=== PATIENT | female | born 1965 | race Caucasian/White ===

== ENCOUNTER 2016-11-15 12:30 | Outpatient (CLI) ==
[2015-05-31 08:06] VITALS: BMI 28.3
[2016-11-15 13:12] LABS: SERUM PREGNANCY INTERNAL QC INTERNAL QC VALID
== END 2016-11-15 12:31 | disposition home or self-care (01) ==
LOC: LAB 12:30
PROVIDERS: ATTEND Family Medicine
DX: N91.2 Amenorrhea, unspecified (principal)
CPT/HCPCS: 36415; 84703

== ENCOUNTER 2016-12-14 08:26 | Outpatient (CLI) ==
[2015-05-31 08:06] VITALS: BMI 28.3
--- NOTE | 2016-12-14 09:48 | DI ---
EXAM: Radiographs, left first toe HISTORY: Initial presentation for the first toe injury. COMPARISON: None available. TECHNIQUE: Three views. FINDINGS: Bone mineralization is decreased. There is no fracture or dislocation. The joint spaces are maintained. No focal soft tissue abnormality is seen. IMPRESSION: No fracture or dislocation.
== END 2016-12-14 08:27 | disposition home or self-care (01) ==
LOC: RAD 08:26
PROVIDERS: ATTEND Family Medicine
DX: S99.922A Unspecified injury of left foot, initial encounter (principal); L03.032 Cellulitis of left toe

== ENCOUNTER 2017-02-16 13:40 | Outpatient (CLI) ==
[2015-05-31 08:06] VITALS: BMI 28.3
--- NOTE | 2017-02-16 23:13 | MRI ---
EXAM: MRI left knee without contrast. HISTORY: Left knee pain. Decreased range of motion. No known injury. Trouble walking. Swelling. No left knee surgery.. TECHNIQUE: Using a local extremity coil on a high field strength magnet multiplanar multisequence m agnet resonance imaging was performed of the left knee without intravenous or intra-articular gadoli nium contrast. COMPARISON: Four view plain film examination left knee 12/02/2015. FINDINGS: Within the medial compartment medial meniscus is intact without discrete surfacing menisc al tear. The medial compartment cartilage congruent without focal underlying subchondral edema. Within the lateral compartment lateral meniscus is intact without discrete surfacing meniscal tear. The lateral compartment cartilage congruent without underlying subchondral edema. Within the patellofemoral compartment the patella seated with intact patellar attachment of the medi al and lateral patellar retinaculum. Both the patellar and trochlear groove cartilage congruent wit hout underlying subchondral edema. Small left effusion. No osteochondral loose bodies. Synovial/ganglion cyst formation posterior cru ciate ligament recess. Intact anterior and posterior cruciate ligament fibers. The extensor mechan ism is intact. Distal quadriceps tendinosis. Proximal patellar tendinosis. Anterior superficial s oft tissue edema/swelling. Additionally there is increased signal and thickening within fat interpo sed between the quadriceps tendon and the suprapatellar bursa. The medial collateral ligament intac t as is the lateral collateral ligament complex and posterolateral corner. Overall bone marrow sign al intensity shows no acute fracture, stress fracture or bone erosions.. Trace posterior joint exte nsion/popliteal cyst.. IMPRESSION: No discrete surfacing meniscal tear. Small left effusion. Synovial/ganglion cyst formation posterior cruciate ligament recess. Distal quadriceps tendinosis. Proximal patellar tendinosis. Increased signal and thickening within fat interposed between the quadriceps tendon and the suprapatellar bursa. This can be seen with qu adriceps fat pad impingement syndrome. Correlate clinically. Intact cruciate and collateral ligaments.
== END 2017-02-16 13:41 | disposition home or self-care (01) ==
LOC: RAD 13:40
PROVIDERS: ATTEND Family Medicine
DX: M25.562 Pain in left knee (principal); M25.662 Stiffness of left knee, not elsewhere classified

== ENCOUNTER 2017-03-02 08:43 | Outpatient (CLI) ==
[2015-05-31 08:06] VITALS: BMI 28.3
[2017-03-02 09:17] LABS: BASOPHILS % (AUTO) 0.8 % (0.0-3.0); EOSINOPHILS # (AUTO) 0.4 K/ul (0.0-0.7); EOSINOPHILS % (AUTO) 7.1 % (0.0-7.0); HEMATOCRIT 36.6 % (37.0-47.0); HEMOGLOBIN 12.5 g/dl (12.0-16.0); IMMATURE GRANULOCYTE % (AUTO) 0.4 % (0.0-5.0); LYMPHOCYTES # (AUTO) 1.8 K/uL (0.60-3.4); LYMPHOCYTES % (AUTO) 36.4 (10.0-50.0); MEAN CORPUSCULAR HEMOGLOBIN 29.7 pg (27.0-31.0); MEAN CORPUSCULAR HGB CONC 34.2 (31.8-35.4); MEAN CORPUSCULAR VOLUME 86.9 fl (81.0-99.0); MONOCYTES # (AUTO) 0.4 K/uL (0.4-2.0); MONOCYTES % (AUTO) 7.1 (0-10); NEUTROPHILS # (AUTO) 2.4 K/ul (2.0-6.9); NEUTROPHILS % (AUTO) 48.2; PLATELET COUNT 278 10^3/uL (140-440); RED BLOOD COUNT 4.21 10^6/ul (4.20-5.40); WHITE BLOOD COUNT 5.05 K/ul (4.6-10.2)
--- NOTE | 2017-03-02 09:28 | CT ---
EXAM: CT of the sinuses/maxillofacial region without contrast History: Facial tenderness and dizziness. Technique: Multiplanar CT images through the sinuses/maxillofacial region were obtained without the administration of IV contrast Findings: Orbits are intact. The visualized intracranial contents demonstrate no grossly acute fin dings. Surrounding soft tissues demonstrate no acute findings. No acute fracture or dislocation. Minimal mucosal thickening of the left maxillary sinus and left e thmoid air cells. Minimal mucosal thickening of the sphenoid sinuses. Hypoplastic frontal sinuses. The visualized right mastoid air cells are clear. Partially visualized left mastoid effusion. Weston al septum is bowed mildly to the left. Bilateral ostiomeatal units are not occluded. Impression: 1. Minimal mucosal thickening of the paranasal sinuses as detailed above. 2. Partially visualized left mastoid effusion.
[2017-03-02 09:32] LABS: BILIRUBIN,URINE Negative (NEGATIVE); KETONES,URINE Negative (NEGATIVE); LEUKOCYTE ESTERASE ,URINE Negative (NEGATIVE); NITRITE,URINE Negative (NEGATIVE); PROTEIN,URINE Trace (NEGATIVE); URINE, BLOOD Negative (NEGATIVE)
[2017-03-02 09:35] LABS: ADD URINE MICROSCOPIC YES
[2017-03-02 09:47] LABS: BACTERIA,URINE TRACE (NOT PRESENT)
[2017-03-02 10:02] LABS: ALBUMIN 3.4 g/dL (3.4-5.0); ALBUMIN/GLOBULIN RATIO 0.92; ANION GAP 12.7; BILIRUBIN,TOTAL 0.7 mg/dL (0.00-1.20); BUN/CREATININE RATIO 20.98; CALCIUM 8.9 mg/dL (8.2-10.2); CHOL/HDL RATIO 2.5 (4.5-5.5); CREATININE 0.81 mg/dL (0.60-1.30); POTASSIUM 3.7 mmol/L (3.5-5.10); TOTAL PROTEIN 7.1 g/dL (6.4-8.2)
== END 2017-03-02 08:44 | disposition home or self-care (01) ==
LOC: RAD 08:43
PROVIDERS: ATTEND Family Medicine
DX: R51 Headache (principal); R42 Dizziness and giddiness; E78.00 Pure hypercholesterolemia, unspecified; D50.9 Iron deficiency anemia, unspecified; K21.9 Gastro-esophageal reflux disease without esophagitis; F31.9 Bipolar disorder, unspecified; Z79.899 Other long term (current) drug therapy
CPT/HCPCS: 36415; 80053; 80061; 81001; 84439; 84443; 85025

== ENCOUNTER 2017-04-04 14:00 | Outpatient (RCR) ==
[2015-05-31 08:06] VITALS: BMI 28.3
--- NOTE | 2017-03-14 11:55 | RS.OPPTEV2 ---
Date of Note: 03/13/17 Visit #: 1 Date of Evaluation: 03/13/17 Payer Source: Medicaid Surgery Performed?: No Treatment Diagnosis: Left knee pain History of Condition/Mechanism of Injury:: Patient reports progressive left knee pain over the last 1-2 months. Reports no specific injury. Prior Level of Function.....Patient was independent with: ADL's, Self Care, Work /Vocation, Caregiving, Ambulation/Mobility, Community Integration/Access Functional Limitations: Sleep, ADL's, Lifting, Carrying, Sitting, Standing, Bending, Squatting, Ambulation, Community Access/Integration Current Subjective/complaints:: Patient reports constant throbbing in the left knee. States today it seems like she has a little more movement. She reports popping in the knee when she stretches out at night. She has had no injection to the knee. She works at [employer], walking and standing on concrete. States pain is worse after working 8-10 hours. She has not tried heat or ice, because she did not know which one to use. Reports pain on the lateral side of the patella and above and below the patella. Treatment Side (optional): Left Medical History Medical History: Arthritis, Cancer (left Breast) Smoking Status: Never smoker Diagnostic Testing/Imaging:: MRI of left knee on 02/16/17. Impression: No discrete surfacing meniscal tear. Small left effusion. Synovial/ganglion cyst formation posterior cruciate ligament recess. Distal quadriceps tendinosis. Proximal patellar tendinosis. Increased signal and thickening within fat interposed between the quadriceps tendon and the suprapatellar bursa. Inact cruciate and collateral ligaments. Patient's Goals: Her goal is to get relief of left knee pain. Pain Assessment - Pain Description Pain Location: left knee Current Pain Intensity: 8/10 Worst Pain Intensity: 10/10 Functional Outcome Measure LE Functional Scale: 36 (36/80=55% impairment) - G Codes & Severity Modifier G Codes & Modifier: NA Source of G Code score: NA Observation - Observation Inspection: Left knee presents with no bruising or redness. Presents with small pocket of swelling just lateral to the patella. Comments: Standing postural alignment with shoes off, patient demonstrates bilateral pes planus, without noted genu valgus. Gait - Gait Pattern Gait Comments: Patient ambulates without an assistive device with decreased stance phase on the left LE. Also demonstrates decreased left knee flexion during swing phase and then demonstrates decreased left heel strike. - Left Knee ROM Left Knee Extension: -2 degrees from full extension Left Knee Flexion: 133 (degrees AROM) Knee ROM Limitations: Soft Tissue Tightness - Right Knee ROM Right Knee Extension: full knee extension Right Knee Flexion: 135 (degrees AROM) - Left Knee Strength Left Knee Extension: 4+ Good + Left Knee Flexion: 4 Good - Right Knee Strength Right Knee Extension: 5 Normal Right Knee Flexion: 5 Normal - Special Tests Patella Apprehension Test: Negative Left Patellar Compression Test: Positive Left Palpation Comments:: Patient reports tenderness with mobility of the patella and with slight compression. Reports tenderness just lateral to the patella and over the quad and patellar tendons. Sensation - Sensation Right Lower Extremity: Intact/Normal Left Lower Extremity: Intact/Normal Additional Comments: Additional Comments: SLR left 45 degrees, right 50-55 degrees. - Treatment Modality: Ultrasound Parameters/Method Applied: 5 mins continuous @ 1.5 w/cm2, then 5 mins @ 20% pulsed 1.0 w/cm2 throughout the left patella and quad tendon and along the lateral side of the patella. Patient Position: Supine Interventions - Exercise/Activities/Manual Therapy Exercises/Activities: Patient instructed in left quad stretching in supine and SLR for HEP. Advised to ice the left knee, especially after work. Also advised to get a shoe insert for increased arch support. Manual Therapy: NA HOME EXERCISE PROGRAM: left quad stretching in supine and SLR for HEP. - Charges Total Direct Minutes: 50 mins Total Treatment Time: 50 mins Procedures billed for this date of service:: MOOSE Low X 3, US Assessment Assessment: Patient presents to therapy with a diagnosis of left knee pain, quadricep tedinopathy. She reports constant throbbing in the knee and stiffness. She reports increased pain with working 8-10 hours. In the department, she exhibits gait deviations due to guarding the left knee, left knee weakness, and tenderness at the patella and quad tendons. She will benefit from modalities to reduce inflammation and exercises of stretching and strengthening to the left LE. Patient Education: Education of diagnosis, Body/Joint mechanics, Home Exercise Program, Home Safety, Activity Modification, Education of Plan of Care Rehab Potential: Good Short Term Goals Goal #1: Pt independent in basic HEP. Goal to be met by: 03/28/17 Goal #2: Pt to ambulate with minimal gait deviation on the left LE. Goal to be met by: 03/28/17 Goal #3: Left HS strength 4+/5. Goal to be met by: 03/28/17 Sql Engineer Goals Goal #1: Pt knows HEP and to continue ex's to maintain functional level at D/C. Goal to be met by: 04/18/17 Goal #2: Score on LE functional scale improved to 60/80. Goal to be met by: 04/18/17 Goal #3: Patient able to perform all ADL's and ambulation with no left knee pain. Goal to be met by: 04/18/17 Goal #4: Pt will be able to work 8-10 hour shift with minimal left knee pain. Goal to be met by: 04/18/17 Plan - Treatment to be Provided Procedures: Therapeutic Exercises, Therapeutic Activity, Patient Education Modalities: Electrical Stimulation, Ultrasound/Phonophoresis, Cryotherapy, Hot Packs - Treatment Plan Frequency: 3 X week Duration: 3 weeks ORDER # VISITS AND/OR THROUGH DATE: 04/18/17 - Treatment Code (1) Knee pain Qualifiers: Laterality: left Chronicity: acute Qualified Description: Acute pain of left knee Qualifier Code(s): (M25.562) Pain in left knee (2) Quadriceps tendinitis Comments: M76.757
--- NOTE | 2017-03-16 16:02 | RS.OPPTDN ---
Subjective Date of Note: 03/16/17 Visit #: 2 Date of Evaluation: 03/13/17 Payer Source: Medicaid Treatment Diagnosis: Left knee pain Current Subjective/complaints:: Patient reports the knee pain is less today , but she is off from work today.She does report using ice at home ,after her work shifts. Pain Assessment - Pain Description Pain Location: left knee Pain Description: Dull, Aching Current Pain Intensity: 4/10 Other Comments regarding Pain:: Pain can be sharp at times. - Treatment Modality: Ultrasound Parameters/Method Applied: 10 mins. @ 50% pulsed mode to L knee,@ 1.5 w/cm2. Patient Position: Supine - Heat/Cryotherapy Treatment: Cryotherapy (20 mis. after modalities and exercises) Interventions - Exercise/Activities/Manual Therapy Exercises/Activities: 20 mins. instruction and return demo of each exercise, including quad sets,SLR's,SLR(VMO),R sidelying for L hip flexor stretches. Total minutes of Exercise: 20 Manual Therapy: NA Total minutes of Manual Therapy: 0 HOME EXERCISE PROGRAM: left quad stretching in supine and SLR for HEP. - Charges Total Direct Minutes: 30 Total Treatment Time: 50 Procedures billed for this date of service:: US,ex ,cp Assessment: Patient is tender to palpate the lateral aspect of the L knee today.She reports pain with passive glide of the L patella,also.She has good return demo of quad sets,and SLR's.She fatigues easily with the VMO leg lifts , but reports this does not increased the actual knee pain.Instructed to use ice as often as necessary . Patient Education: Education of diagnosis, Body/Joint mechanics, Home Exercise Program, Home Safety, Activity Modification, Education of Plan of Care Short Term Goals Goal #1: Pt independent in basic HEP. Goal to be met by: 03/28/17 Progress towards Goal:: Progressing Goal #2: Pt to ambulate with minimal gait deviation on the left LE. Goal to be met by: 03/28/17 Goal #3: Left HS strength 4+/5. Goal to be met by: 03/28/17 Experimental Box Tester Goals Goal #1: Pt knows HEP and to continue ex's to maintain functional level at D/C. Goal to be met by: 04/18/17 Progress towards goal: Progressing Goal #2: Score on LE functional scale improved to 60/80. Goal to be met by: 04/18/17 Goal #3: Patient able to perform all ADL's and ambulation with no left knee pain. Goal to be met by: 04/18/17 Goal #4: Pt will be able to work 8-10 hour shift with minimal left knee pain. Goal to be met by: 04/18/17 Plan PLAN OF CARE EXPIRES ON:: 04/18/17 ORDER # VISITS AND/OR THROUGH DATE: 04/18/17 PLAN: Continue Plan of Care
--- NOTE | 2017-03-21 15:15 | RS.OPPTDN ---
Subjective Date of Note: 03/21/17 Visit #: 3 Date of Evaluation: 03/13/17 Payer Source: Medicaid Treatment Diagnosis: Left knee pain Current Subjective/complaints:: Patient reports extreme knee pain currently,has been on her feet since 4 AM,works at [employer]. Pain Assessment - Pain Description Pain Location: left knee Pain Description: Dull, Aching Current Pain Intensity: 10/10 upon arrival,4/10 after treatment - Treatment Modality: Ultrasound Parameters/Method Applied: 10 mins. to L knee @ 1.5 w/cm2,50% pulsed mode. Patient Position: Supine - Heat/Cryotherapy Treatment: Cryotherapy (20 mins. prior to US and exercises) Interventions - Exercise/Activities/Manual Therapy Exercises/Activities: 20 mins. total exercise,including quad sets,SAQ'sSLR's,3/ 10 each.Gentle patellar glides. Total minutes of Exercise: 20 Manual Therapy: NA Total minutes of Manual Therapy: 0 HOME EXERCISE PROGRAM: left quad stretching in supine and SLR for HEP. - Charges Total Direct Minutes: 30 Total Treatment Time: 50 Procedures billed for this date of service:: cp,US,ex 1 Assessment: Patient has improved return demo of SLr's today.She reports significant relief after treatment today.She has less antalgic gait when exiting clinic today.She is attentive and compliant to HEP. Patient Education: Education of diagnosis, Body/Joint mechanics, Home Exercise Program, Home Safety, Activity Modification, Education of Plan of Care Patient demonstrates compliance with HEP?: Yes Short Term Goals Goal #1: Pt independent in basic HEP. Goal to be met by: 03/28/17 Progress towards Goal:: Progressing Goal #2: Pt to ambulate with minimal gait deviation on the left LE. Goal to be met by: 03/28/17 Progress towards Goal:: Progressing Goal #3: Left HS strength 4+/5. Goal to be met by: 03/28/17 Halfway Goals Goal #1: Pt knows HEP and to continue ex's to maintain functional level at D/C. Goal to be met by: 04/18/17 Progress towards goal: Progressing Goal #2: Score on LE functional scale improved to 60/80. Goal to be met by: 04/18/17 Goal #3: Patient able to perform all ADL's and ambulation with no left knee pain. Goal to be met by: 04/18/17 Goal #4: Pt will be able to work 8-10 hour shift with minimal left knee pain. Goal to be met by: 04/18/17 Plan PLAN OF CARE EXPIRES ON:: 04/18/17 ORDER # VISITS AND/OR THROUGH DATE: 04/18/17 PLAN: Continue Plan of Care
--- NOTE | 2017-03-23 15:00 | RS.OPPTDN ---
Subjective Date of Note: 03/23/17 Visit #: 4 Date of Evaluation: 03/13/17 Payer Source: Medicaid Treatment Diagnosis: Left knee pain Current Subjective/complaints:: Patient very apologetic,25 mins. late today,but does understand she will receive abbreviated treatment. Pain Assessment - Pain Description Pain Location: left knee Pain Description: Sharp, Dull, Aching Current Pain Intensity: 10/10 upon arrival - Treatment Modality: Ultrasound Parameters/Method Applied: 10 mins.,continuous mode @ 1.5 w/cm2, to L knee. Patient Position: Supine - Heat/Cryotherapy Treatment: Cryotherapy (15 mins. after US) Interventions - Exercise/Activities/Manual Therapy Exercises/Activities: None today (25 mins. late ). Total minutes of Exercise: 0 Manual Therapy: NA Total minutes of Manual Therapy: 0 HOME EXERCISE PROGRAM: left quad stretching in supine and SLR for HEP. - Charges Total Direct Minutes: 10 Total Treatment Time: 25 Procedures billed for this date of service:: US,cp Assessment: No objective assessment today due to abbreviated treatment.She is motivated to improve and understands to continue HEP in pain free ROM. Patient Education: Education of diagnosis, Body/Joint mechanics, Home Exercise Program, Home Safety, Activity Modification, Education of Plan of Care Patient demonstrates compliance with HEP?: Yes Short Term Goals Goal #1: Pt independent in basic HEP. Goal to be met by: 03/28/17 Progress towards Goal:: Progressing Goal #2: Pt to ambulate with minimal gait deviation on the left LE. Goal to be met by: 03/28/17 Progress towards Goal:: Progressing Goal #3: Left HS strength 4+/5. Goal to be met by: 03/28/17 Jv Baseball Coach Goals Goal #1: Pt knows HEP and to continue ex's to maintain functional level at D/C. Goal to be met by: 04/18/17 Progress towards goal: Progressing Goal #2: Score on LE functional scale improved to 60/80. Goal to be met by: 04/18/17 Goal #3: Patient able to perform all ADL's and ambulation with no left knee pain. Goal to be met by: 04/18/17 Goal #4: Pt will be able to work 8-10 hour shift with minimal left knee pain. Goal to be met by: 04/18/17 Plan PLAN OF CARE EXPIRES ON:: 04/18/17 ORDER # VISITS AND/OR THROUGH DATE: 04/18/17 PLAN: Continue Plan of Care
--- NOTE | 2017-03-28 15:03 | RS.OPPTDN ---
Subjective Date of Note: 03/28/17 Visit #: 5 Date of Evaluation: 03/13/17 Payer Source: Medicaid Treatment Diagnosis: Left knee pain Current Subjective/complaints:: Enters clinic with elevated pain today,very antalgic gait,has been working since 4 AM. on her feet all day. Pain Assessment - Pain Description Pain Location: left knee Pain Description: Sharp, Dull, Aching Current Pain Intensity: 10/10 upon arrival - Treatment Modality: Ultrasound Parameters/Method Applied: 15 mins. @ 1.5 w/cm2,continuous mode to the perimeter of L patella. Patient Position: Supine - Heat/Cryotherapy Treatment: Cryotherapy (20 mins. to L knee) Interventions - Exercise/Activities/Manual Therapy Exercises/Activities: N/A Total minutes of Exercise: 0 Manual Therapy: NA Total minutes of Manual Therapy: 0 HOME EXERCISE PROGRAM: left quad stretching in supine and SLR for HEP. - Charges Total Direct Minutes: 15 Total Treatment Time: 35 Procedures billed for this date of service:: cp,US Assessment: No exerciss today due to severe pain upon attempting SAQ's.She exits clinic ,still has antalgic gait.She is compliant to doing her HEP when she can tolerate.Her most severe is in terminal knee extension. Patient Education: Education of diagnosis, Body/Joint mechanics, Home Exercise Program, Home Safety, Activity Modification, Education of Plan of Care Patient demonstrates compliance with HEP?: Yes Short Term Goals Goal #1: Pt independent in basic HEP. Goal to be met by: 03/28/17 Progress towards Goal:: Progressing Goal #2: Pt to ambulate with minimal gait deviation on the left LE. Goal to be met by: 03/28/17 (very antalgic today) Progress towards Goal:: Regressing Goal #3: Left HS strength 4+/5. Goal to be met by: 03/28/17 (N/A) Spearer Goals Goal #1: Pt knows HEP and to continue ex's to maintain functional level at D/C. Goal to be met by: 04/18/17 Progress towards goal: Progressing Goal #2: Score on LE functional scale improved to 60/80. Goal to be met by: 04/18/17 Goal #3: Patient able to perform all ADL's and ambulation with no left knee pain. Goal to be met by: 04/18/17 Progress towards goal: No Change Goal #4: Pt will be able to work 8-10 hour shift with minimal left knee pain. Goal to be met by: 04/18/17 Progress towards goal: No Change Plan PLAN OF CARE EXPIRES ON:: 04/18/17 ORDER # VISITS AND/OR THROUGH DATE: 04/18/17 PLAN: Continue Plan of Care
--- NOTE | 2017-03-30 14:53 | RS.OPPTDN ---
Subjective Date of Note: 03/30/17 Visit #: 6 Date of Evaluation: 03/13/17 Payer Source: Medicaid Treatment Diagnosis: Left knee pain Current Subjective/complaints:: Patient reports pain has decreased and she is walking much better today. Pain Assessment - Pain Description Pain Location: left knee Pain Description: Sharp, Dull, Aching Current Pain Intensity: 4/10 on average today - Treatment Modality: Ultrasound Parameters/Method Applied: [id number] at 1.5w/cm2 around the perimeter of the left patella prior to EX. Patient Position: Supine - Heat/Cryotherapy Treatment: Cryotherapy ([id number] to the left knee following US and EX. Patient in supine. ) Interventions - Exercise/Activities/Manual Therapy Exercises/Activities: [id number] Quad sets and ankle pumps. Hamstring stretching and passive flexion extension. SLR 2s/10reps. Patella mobs. Total minutes of Exercise: 15mins Manual Therapy: NA HOME EXERCISE PROGRAM: left quad stretching in supine and SLR for HEP. - Charges Total Direct Minutes: 29mins Total Treatment Time: 44mins Procedures billed for this date of service:: US, EX, CP Assessment: Patient responded well to last treatment session of modalities and cold pack. Significant reduction in pain rating. Patient Education: Home Exercise Program Patient demonstrates compliance with HEP?: Yes Short Term Goals Goal #1: Pt independent in basic HEP. Goal to be met by: 03/28/17 Progress towards Goal:: Progressing Goal #2: Pt to ambulate with minimal gait deviation on the left LE. Goal to be met by: 03/28/17 (very antalgic today) Progress towards Goal:: Regressing Goal #3: Left HS strength 4+/5. Goal to be met by: 03/28/17 (N/A) Chcf Goals Goal #1: Pt knows HEP and to continue ex's to maintain functional level at D/C. Goal to be met by: 04/18/17 Progress towards goal: Progressing Goal #2: Score on LE functional scale improved to 60/80. Goal to be met by: 04/18/17 Goal #3: Patient able to perform all ADL's and ambulation with no left knee pain. Goal to be met by: 04/18/17 Progress towards goal: No Change Goal #4: Pt will be able to work 8-10 hour shift with minimal left knee pain. Goal to be met by: 04/18/17 Progress towards goal: No Change Plan PLAN OF CARE EXPIRES ON:: 04/18/17 ORDER # VISITS AND/OR THROUGH DATE: 04/18/17 PLAN: Continue Plan of Care
--- NOTE | 2017-04-04 15:02 | RS.OPPTDN ---
Subjective Date of Note: 04/04/17 Visit #: 7 Date of Evaluation: 03/13/17 Payer Source: Medicaid Treatment Diagnosis: Left knee pain Current Subjective/complaints:: Reports the L knee is much better today,but also has been off work the past three days. Pain Assessment - Pain Description Pain Location: left knee Pain Description: Dull Current Pain Intensity: minimal Interventions - Exercise/Activities/Manual Therapy Exercises/Activities: [id number] Quad sets ,SLR's ,heelslides,HEP review. Total minutes of Exercise: 15 Manual Therapy: NA Total minutes of Manual Therapy: 0 HOME EXERCISE PROGRAM: left quad stretching in supine and SLR for HEP. - Charges Total Direct Minutes: 25 Total Treatment Time: 45 Procedures billed for this date of service:: cp,US,ex 1 Assessment: Patient has much less pain today,minimal antalgic gait present .She has less warmth ,less edema in the L knee today.She is compliant to HEP. Patient Education: Education of diagnosis, Body/Joint mechanics, Home Exercise Program, Home Safety, Activity Modification, Education of Plan of Care Patient demonstrates compliance with HEP?: Yes Short Term Goals Goal #1: Pt independent in basic HEP. Goal to be met by: 03/28/17 Progress towards Goal:: Partially Met Goal #2: Pt to ambulate with minimal gait deviation on the left LE. Goal to be met by: 03/28/17 Progress towards Goal:: Partially Met Goal #3: Left HS strength 4+/5. Goal to be met by: 03/28/17 Strategies Analyst Goals Goal #1: Pt knows HEP and to continue ex's to maintain functional level at D/C. Goal to be met by: 04/18/17 Progress towards goal: Partially Met Goal #2: Score on LE functional scale improved to 60/80. Goal to be met by: 04/18/17 Goal #3: Patient able to perform all ADL's and ambulation with no left knee pain. Goal to be met by: 04/18/17 Progress towards goal: Progressing Goal #4: Pt will be able to work 8-10 hour shift with minimal left knee pain. Goal to be met by: 04/18/17 (N/A today,off the past 3 days) Plan PLAN OF CARE EXPIRES ON:: 04/18/17 ORDER # VISITS AND/OR THROUGH DATE: 04/18/17 PLAN: Continue Plan of Care
== END 2017-04-05 ==
PROVIDERS: ATTEND Family Medicine
DX: M25.562 Pain in left knee (principal); M76.899 Other specified enthesopathies of unspecified lower limb, excluding foot

== ENCOUNTER 2017-04-06 15:01 | Outpatient (RCR) ==
[2015-05-31 08:06] VITALS: BMI 28.3
--- NOTE | 2017-04-06 15:06 | RS.OPPTDC ---
Date of Discharge: 04/06/17 Date of Evaluation: 03/13/17 Number of Visits: 8 Treatment Diagnosis: Left knee pain Current Level of Function: Independent in community. Current Complaints/Gains: Pleased with her progress,reports minimal knee pain today,agrees with D/C plan. Pain Assessment - Pain Description Pain Location: left knee Pain Description: Dull Current Pain Intensity: minimal Functional Outcome Measure LE Functional Scale: 49 - G Codes & Severity Modifier G Codes & Modifier: NA Source of G Code score: NA Observation - Observation Posture: Normal Gait - Gait Pattern General Gait Pattern Observation: No Deviations/Normal General Range of Motion: WNL Muscle Strength: 5-/5 - Heat/Cryotherapy Treatment: Cryotherapy (20 mins. prior to exercises) Interventions - Exercise/Activities/Manual Therapy Exercises/Activities: 25 mins. Quad sets ,SLR's ,heelslides,SAQ,LAQ,side-lying hip abduction.Copies given to patient . Total minutes of Exercise: 25 Manual Therapy: NA Total minutes of Manual Therapy: 0 HOME EXERCISE PROGRAM: left quad stretching in supine and SLR for HEP. - Charges Total Direct Minutes: 25 Total Treatment Time: 45 Procedures billed for this date of service:: cp,ex 2 Assessment Assessment: Patient no longer requires skilled PT as she has good return demo of exercises.She understands the HEP well,has minimal knee pain ,tolerates ADL' s better. Patient Education: Education of diagnosis, Body/Joint mechanics, Home Exercise Program, Home Safety, Activity Modification, Education of Plan of Care Rehab Potential: Good Short Term Goals Goal #1: Pt independent in basic HEP. Goal to be met by: 03/28/17 Progress towards Goal:: Met Goal #2: Pt to ambulate with minimal gait deviation on the left LE. Goal to be met by: 03/28/17 Progress towards Goal:: Met Goal #3: Left HS strength 4+/5. Goal to be met by: 03/28/17 Progress towards Goal:: Met Sales Operations Goals Goal #1: Pt knows HEP and to continue ex's to maintain functional level at D/C. Goal to be met by: 04/18/17 Progress towards goal: Met Goal #2: Score on LE functional scale improved to 60/80. Goal to be met by: 04/18/17 Progress towards goal: Progressing Goal #3: Patient able to perform all ADL's and ambulation with no left knee pain. Goal to be met by: 04/18/17 Progress towards goal: Partially Met Goal #4: Pt will be able to work 8-10 hour shift with minimal left knee pain. Goal to be met by: 04/18/17 Progress towards goal: Progressing Plan Reason for Discharge:: No Further Skilled Therapy Indicated
== END 2017-05-05 ==
PROVIDERS: ATTEND Family Medicine
DX: M25.562 Pain in left knee (principal); M76.892 Other specified enthesopathies of left lower limb, excluding foot

== ENCOUNTER 2017-05-29 08:58 | Outpatient (CLI) ==
[2015-05-31 08:06] VITALS: BMI 28.3
[2017-05-29 09:11] LABS: BASOPHILS % (AUTO) 0.7 % (0.0-3.0); EOSINOPHILS # (AUTO) 0.2 K/ul (0.0-0.7); EOSINOPHILS % (AUTO) 4.2 % (0.0-7.0); HEMATOCRIT 36.2 % (37.0-47.0); HEMOGLOBIN 12.5 g/dl (12.0-16.0); IMMATURE GRANULOCYTE % (AUTO) 0.2 % (0.0-5.0); LYMPHOCYTES # (AUTO) 2.3 K/uL (0.60-3.4); LYMPHOCYTES % (AUTO) 41.9 (10.0-50.0); MEAN CORPUSCULAR HEMOGLOBIN 29.7 pg (27.0-31.0); MEAN CORPUSCULAR HGB CONC 34.5 (31.8-35.4); MONOCYTES # (AUTO) 0.4 K/uL (0.4-2.0); MONOCYTES % (AUTO) 6.9 (0-10); NEUTROPHILS # (AUTO) 2.6 K/ul (2.0-6.9); NEUTROPHILS % (AUTO) 46.1; PLATELET COUNT 263 10^3/uL (140-440); RED BLOOD COUNT 4.21 10^6/ul (4.20-5.40); WHITE BLOOD COUNT 5.54 K/ul (4.6-10.2)
[2017-05-29 09:29] LABS: ALBUMIN 3.6 g/dL (3.4-5.0); ALBUMIN/GLOBULIN RATIO 0.97; ANION GAP 15.1; BILIRUBIN,TOTAL 0.56 mg/dL (0.00-1.20); CALCIUM 9.2 mg/dL (8.2-10.2); CHOL/HDL RATIO 2.7 (4.5-5.5); CREATININE 0.85 mg/dL (0.60-1.30); POTASSIUM 4.1 mmol/L (3.5-5.10); TOTAL PROTEIN 7.3 g/dL (6.4-8.2)
== END 2017-05-29 08:59 | disposition home or self-care (01) ==
LOC: LAB 08:58
PROVIDERS: ATTEND Family Medicine
DX: E78.00 Pure hypercholesterolemia, unspecified (principal); D50.9 Iron deficiency anemia, unspecified; F31.9 Bipolar disorder, unspecified; R74.8 Abnormal levels of other serum enzymes; Z79.899 Other long term (current) drug therapy
CPT/HCPCS: 36415; 80053; 80061; 84075; 84080; 85025

== ENCOUNTER 2017-07-14 06:44 | Outpatient (CLI) ==
[2015-05-31 08:06] VITALS: BMI 28.3
[2017-07-14 07:25] LABS: ALBUMIN 3.5 g/dL (3.4-5.0); ALBUMIN/GLOBULIN RATIO 0.97; ANION GAP 11.8; BILIRUBIN,TOTAL 0.6 mg/dL (0.00-1.20); BUN/CREATININE RATIO 20.51; CALCIUM 9.6 mg/dL (8.2-10.2); CHOL/HDL RATIO 3.3 (4.5-5.5); CREATININE 0.78 mg/dL (0.60-1.30); POTASSIUM 3.8 mmol/L (3.5-5.10); TOTAL PROTEIN 7.1 g/dL (6.4-8.2)
[2017-07-14 07:32] LABS: BASOPHILS # (AUTO) 0.1 K/uL (0-0.2); EOSINOPHILS # (AUTO) 0.3 K/ul (0.0-0.7); HEMATOCRIT 36.8 % (37.0-47.0); HEMOGLOBIN 12.4 g/dl (12.0-16.0); IMMATURE GRANULOCYTE % (AUTO) 0.2 % (0.0-5.0); LYMPHOCYTES # (AUTO) 2.1 K/uL (0.60-3.4); MEAN CORPUSCULAR HEMOGLOBIN 29.3 pg (27.0-31.0); MEAN CORPUSCULAR HGB CONC 33.7 (31.8-35.4); MONOCYTES # (AUTO) 0.4 K/uL (0.4-2.0); MONOCYTES % (AUTO) 7.1 (0-10); NEUTROPHILS # (AUTO) 2.3 K/ul (2.0-6.9); NEUTROPHILS % (AUTO) 44.7; PLATELET COUNT 268 10^3/uL (140-440); RED BLOOD COUNT 4.23 10^6/ul (4.20-5.40); WHITE BLOOD COUNT 5.19 K/ul (4.6-10.2)
[2017-07-14 07:43] LABS: BILIRUBIN,URINE Negative (NEGATIVE); KETONES,URINE Negative (NEGATIVE); LEUKOCYTE ESTERASE ,URINE Negative (NEGATIVE); NITRITE,URINE Negative (NEGATIVE); PH,URINE 6.5 (5-9); PROTEIN,URINE Negative (NEGATIVE); URINE, BLOOD 1+ (NEGATIVE)
[2017-07-14 07:51] LABS: ADD URINE MICROSCOPIC YES
[2017-07-15 06:11] LABS: GAMMA GLUTAMYL TRANSFERASE 162 IU/L (0-60)
== END 2017-07-14 06:45 | disposition home or self-care (01) ==
LOC: LAB 06:44
PROVIDERS: ATTEND Family Medicine
DX: R74.0 Nonspecific elevation of levels of transaminase and lactic acid dehydrogenase [LDH] (principal); R74.8 Abnormal levels of other serum enzymes; E78.5 Hyperlipidemia, unspecified
CPT/HCPCS: 36415; 80053; 80061; 80074; 81001; 82977; 85025

== ENCOUNTER 2017-07-20 07:55 | Outpatient (CLI) ==
[2015-05-31 08:06] VITALS: BMI 28.3
--- NOTE | 2017-07-20 09:59 | CT ---
EXAM: CT abdomen HISTORY: Elevated liver enzymes. TECHNIQUE: CT abdomen with and without intravenous contrast. Four phase protocol. Multiplanar imag es were provided. 100 ml of Omnipaque. FINDINGS: Comparison may be made to 05/31/2015. Liver size is normal. Mild widening of the hepatic fissures. Mildly prominent caudate lobe. The unen hanced images of the liver revealed no lesions. No hypervascular liver lesions are identified on art erial phase imaging. Portal venous phase imaging revealed no liver lesions. Normal patency of the p ortal venous system is noted. Delayed images reveal no liver lesions. The spleen is within normal limits. Gallbladder and pancreas are unremarkable. Normal adrenal gland s. Kidneys have no evidence of hydronephrosis or calculi. There is a small 1 cm cyst of the medial right kidney. Otherwise normal enhancement of the renal parenchyma. Scattered nonspecific periaorti c and mesenteric lymph nodes are stable. Normal abdominal aorta. No gastric distension. Bowel gas pattern is within normal limits. No ascites. There is a fatty umbilical hernia with a transverse nec k of 1.4 cm unchanged since previous study. 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 Lung bases are clear. No pneumoperitoneum. IMPRESSION: 1. No liver lesions or intrahepatic biliary dilatation. Liver size is normal. No hepatic steatosis . Mild prominence of the caudate lobe and widening of the hepatic fissures could conceivably indicat e early cirrhotic architecture. 2. Scattered mildly prominent mesenteric lymph nodes appear similar to that previously seen, nonspec ific.
== END 2017-07-20 07:56 | disposition home or self-care (01) ==
LOC: RAD 07:55
PROVIDERS: ATTEND Family Medicine
DX: R94.5 Abnormal results of liver function studies (principal); R74.0 Nonspecific elevation of levels of transaminase and lactic acid dehydrogenase [LDH]; R74.8 Abnormal levels of other serum enzymes

== ENCOUNTER 2017-08-04 07:46 | Outpatient (CLI) ==
[2015-05-31 08:06] VITALS: BMI 28.3
[2017-08-04 08:03] LABS: BASOPHILS # (AUTO) 0.1 K/uL (0-0.2); EOSINOPHILS # (AUTO) 0.3 K/ul (0.0-0.7); EOSINOPHILS % (AUTO) 5.2 % (0.0-7.0); HEMATOCRIT 35.7 % (37.0-47.0); HEMOGLOBIN 12.3 g/dl (12.0-16.0); IMMATURE GRANULOCYTE % (AUTO) 0.2 % (0.0-5.0); LYMPHOCYTES # (AUTO) 1.9 K/uL (0.60-3.4); LYMPHOCYTES % (AUTO) 39.4 (10.0-50.0); MEAN CORPUSCULAR HEMOGLOBIN 29.9 pg (27.0-31.0); MEAN CORPUSCULAR HGB CONC 34.5 (31.8-35.4); MEAN CORPUSCULAR VOLUME 86.9 fl (81.0-99.0); MONOCYTES # (AUTO) 0.3 K/uL (0.4-2.0); MONOCYTES % (AUTO) 6.2 (0-10); NEUTROPHILS # (AUTO) 2.3 K/ul (2.0-6.9); PLATELET COUNT 232 10^3/uL (140-440); RED BLOOD COUNT 4.11 10^6/ul (4.20-5.40); WHITE BLOOD COUNT 4.82 K/ul (4.6-10.2)
[2017-08-04 08:25] LABS: ALBUMIN 3.3 g/dL (3.4-5.0); ALBUMIN/GLOBULIN RATIO 0.97; BILIRUBIN,TOTAL 0.55 mg/dL (0.00-1.20); BUN/CREATININE RATIO 16.21; CALCIUM 9.1 mg/dL (8.2-10.2); CHOL/HDL RATIO 2.7 (4.5-5.5); CREATININE 0.74 mg/dL (0.60-1.30); TOTAL PROTEIN 6.7 g/dL (6.4-8.2)
== END 2017-08-04 07:47 | disposition home or self-care (01) ==
LOC: LAB 07:46
PROVIDERS: ATTEND Family Medicine
DX: E78.5 Hyperlipidemia, unspecified (principal); R74.0 Nonspecific elevation of levels of transaminase and lactic acid dehydrogenase [LDH]; R74.8 Abnormal levels of other serum enzymes; R93.2 Abnormal findings on diagnostic imaging of liver and biliary tract; D50.9 Iron deficiency anemia, unspecified
CPT/HCPCS: 36415; 80053; 80061; 82977; 85025

== ENCOUNTER 2017-08-09 09:19 | Outpatient (CLI) ==
[2015-05-31 08:06] VITALS: BMI 28.3
--- NOTE | 2017-08-09 10:50 | US ---
EXAM: Right upper quadrant abdominal ultrasound. History: Right upper quadrant abdominal pain. Comparison: CT abdomen 07/20/2017 Technique: Multiple sonographic images through the abdomen were obtained. Color duplex Doppler was used to interrogate vascular flow. Findings: The visualized pancreas demonstrates no gross abnormality. No abdominal ascites. There is antegrade flow within the main portal vein. The liver is mildly enlarged and echogenic. No focal liver lesio ns identified sonographically. Limited visualization of the right kidney demonstrates no evidence fo r hydronephrosis. No shadowing gallstones. Gallbladder wall is not thickened. Common bile duct latrice sures 0.4 cm in caliber. Impression: 1. No cholelithiasis. 2. Mildly enlarged fatty liver
== END 2017-08-09 09:20 | disposition home or self-care (01) ==
LOC: RAD 09:19
PROVIDERS: ATTEND Family Medicine
DX: R10.11 Right upper quadrant pain (principal); R74.8 Abnormal levels of other serum enzymes

== ENCOUNTER 2017-10-22 07:09 | Outpatient (CLI) ==
[2015-05-31 08:06] VITALS: BMI 28.3
[2017-10-22 07:25] LABS: BASOPHILS % (AUTO) 0.8 % (0.0-3.0); EOSINOPHILS # (AUTO) 0.3 K/ul (0.0-0.7); EOSINOPHILS % (AUTO) 5.1 % (0.0-7.0); HEMATOCRIT 37.3 % (37.0-47.0); HEMOGLOBIN 12.8 g/dl (12.0-16.0); IMMATURE GRANULOCYTE % (AUTO) 0.2 % (0.0-5.0); LYMPHOCYTES # (AUTO) 2.1 K/uL (0.60-3.4); LYMPHOCYTES % (AUTO) 39.7 (10.0-50.0); MEAN CORPUSCULAR HEMOGLOBIN 29.8 pg (27.0-31.0); MEAN CORPUSCULAR HGB CONC 34.3 (31.8-35.4); MEAN CORPUSCULAR VOLUME 86.7 fl (81.0-99.0); MONOCYTES # (AUTO) 0.4 K/uL (0.4-2.0); MONOCYTES % (AUTO) 6.8 (0-10); NEUTROPHILS # (AUTO) 2.5 K/ul (2.0-6.9); NEUTROPHILS % (AUTO) 47.4; PLATELET COUNT 239 10^3/uL (140-440); WHITE BLOOD COUNT 5.32 K/ul (4.6-10.2)
[2017-10-22 07:29] LABS: BILIRUBIN,URINE Negative (NEGATIVE); KETONES,URINE Negative (NEGATIVE); LEUKOCYTE ESTERASE ,URINE Negative (NEGATIVE); NITRITE,URINE Negative (NEGATIVE); PH,URINE 7.5 (5-9); PROTEIN,URINE Negative (NEGATIVE); URINE, BLOOD Trace-lysed (NEGATIVE)
[2017-10-22 07:30] LABS: ADD URINE MICROSCOPIC YES
[2017-10-22 07:43] LABS: BACTERIA,URINE 2+ (NOT PRESENT)
[2017-10-22 07:44] LABS: ALBUMIN 3.5 g/dL (3.4-5.0); ALBUMIN/GLOBULIN RATIO 0.92; ANION GAP 13.2; BILIRUBIN,TOTAL 0.54 mg/dL (0.00-1.20); BUN/CREATININE RATIO 22.22; CALCIUM 9.4 mg/dL (8.2-10.2); CHOL/HDL RATIO 3.1 (4.5-5.5); CREATININE 0.81 mg/dL (0.60-1.30); POTASSIUM 4.2 mmol/L (3.5-5.10); TOTAL PROTEIN 7.3 g/dL (6.4-8.2)
== END 2017-10-22 07:10 | disposition home or self-care (01) ==
LOC: LAB 07:09
PROVIDERS: ATTEND Family Medicine
DX: K76.0 Fatty (change of) liver, not elsewhere classified (principal); E78.5 Hyperlipidemia, unspecified; D50.9 Iron deficiency anemia, unspecified; Z79.899 Other long term (current) drug therapy
CPT/HCPCS: 36415; 80053; 80061; 81001; 82977; 85025

== ENCOUNTER 2017-11-14 15:09 | Outpatient (CLI) ==
[2015-05-31 08:06] VITALS: BMI 28.3
--- NOTE | 2017-11-15 09:55 | MAMMO ---
EXAM: Bilateral digital screening mammogram (2-D and 3-D) History: Screening Comparison: Bilateral mammogram 10/05/2016 Findings: MLO and CC views of bilateral breasts demonstrate scattered fibroglandular breast parenchy ma. CAD was reviewed by the radiologist. Tomosynthesis was performed. Postoperative changes seen w ithin the right breast. There are no dominant masses, no suspicious microcalcifications and no archi tectural distortions Impression: Benign mammogram. Recommend followup routine screening mammography in 1 year. BIRADS 2
== END 2017-11-14 15:10 | disposition home or self-care (01) ==
LOC: RAD 15:09
PROVIDERS: ATTEND Family Medicine
DX: Z12.31 Encounter for screening mammogram for malignant neoplasm of breast (principal); Z98.890 Other specified postprocedural states; Z85.3 Personal history of malignant neoplasm of breast
CPT/HCPCS: 77067

== ENCOUNTER 2017-12-07 09:36 | Outpatient (CLI) ==
[2015-05-31 08:06] VITALS: BMI 28.3
--- NOTE | 2017-12-07 10:49 | DI ---
EXAM: Three views of the left ankle. History: Left ankle pain. Findings: No acute fracture or dislocation. Small to moderate plantar spur. Joint spaces are relat ively preserved. No radiopaque foreign bodies. Well corticated ossific density adjacent to the medi al malleolus compatible with old trauma or accessory ossicle. Mild soft tissue swelling at the ankle . Impression: No acute osseous abnormality. Other findings as detailed above.
--- NOTE | 2017-12-07 11:18 | DI ---
EXAM: Three views of the right ankle. History: Right ankle pain. Findings: No acute fracture or dislocation. Small plantar spur. Mild soft tissue swelling at the a nkle. Joint spaces are relatively preserved. Impression: No acute osseous abnormality
--- NOTE | 2017-12-07 12:05 | DI ---
EXAM: Two views of the chest. History: Chest wall pain. Findings: Heart size is normal. No focal consolidation. No appreciable pleural fluid and no pneumo thorax. No acute osseous abnormalities. Impression: No acute cardiopulmonary process
--- NOTE | 2017-12-07 12:05 | DI ---
EXAM: Four views of the left ribs. History: Left chest wall pain. Comparison: Chest radiograph 12/07/2017 Findings: The left lung is free of consolidation. No left pleural effusion and no left-sided pneumo thorax. No acute displaced left-sided rib fractures. Impression: Unremarkable left rib series
--- NOTE | 2017-12-07 12:06 | DI ---
Exam: Three x-rays of the right foot. Comparison: None available. Reason for exam: Foot pain. FINDINGS: No pneumothorax, pleural effusion, or focal consolidation. The imaged osseous structures appear grossly unremarkable without acute fracture. There is mild degenerative disease with joint spa ce narrowing in the phalanges. Mild spurring is seen in the calcaneus Impression: 1. No acute fracture or malalignment in the right foot. 2. Mild degenerative disease and phalanges and calcaneus
--- NOTE | 2017-12-07 12:07 | DI ---
Exam: Three x-rays of the left foot. Comparison: None available. Reason for exam: Left foot pain. FINDINGS: No acute fracture or malalignment. The joint spaces are well maintained. Degenerative di sease is seen in the phalanges with joint space narrowing. There is a moderately sized calcaneal spu r. Impression: 1. No acute fracture or dislocation in the left foot. 2. Mild degenerative disease in the phalanges and calcaneus
== END 2017-12-07 09:37 | disposition home or self-care (01) ==
LOC: RAD 09:36
PROVIDERS: ATTEND Family Medicine
DX: M54.5 Low back pain (principal); M54.10 Radiculopathy, site unspecified; R07.89 Other chest pain; M25.572 Pain in left ankle and joints of left foot; M25.571 Pain in right ankle and joints of right foot

== ENCOUNTER 2018-01-09 14:58 | Outpatient (CLI) ==
[2015-05-31 08:06] VITALS: BMI 28.3
--- NOTE | 2018-01-10 20:44 | MRI ---
EXAM: Lumbar spine MRI without contrast. HISTORY: Low back pain and radiculopathy. COMPARISON: Lumbar spine MRI 12/17/[address] scan 05/31/2015. TECHNIQUE: Multiplanar, multisequence MR images were acquired of the lumbar spine without contrast. FINDINGS: Conus medullaris ends at L1-2 and has normal signal intensity. Five non-rib bearing lumba r vertebra are present. The lumbar vertebra are normal in height and intrinsic bone marrow signal. Alignment is near anatomic. There is minor thoracolumbar levoscoliosis centered at L2-3 and there is 2 mm rightward translation of L4 with respect to L5. 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 At T11-1 2, there is ventral spondylosis with marked anterior disc space narrowing, disc desiccation and anter ior modic type 2 endplate changes. There is minor lumbar ventral spondylosis and mild disc space cosmo rowing at L4-5. There is disc desiccation at T10-11 and T11-12. The partially visualized liver and spleen are unremarkable. Simple bilateral renal cysts are present . There are no paravertebral masses. T11-12: There is a minor posterior disc bulge without central canal stenosis. T12-L1: The intervertebral disc is normal. L1-2: The intervertebral disc is normal. L2-3: The intervertebral disc is normal. L3-4: There is a minor disc bulge with marginal osteophytes that minimally effaces the ventral theca l sac and anterior inferior neural foramina bilaterally. Minor left greater than right facet arthrop athy and ligamentum flavum hypertrophy is present. This produces minor right and mild left neural fo raminal stenosis. There is no central canal stenosis. L4-5: There is a trace anterolisthesis of L4 on L5 and there is a mild disc bulge with a small right foraminal disc protrusion that is best shown on the coronal sequence (image #8). This is unchanged compared to prior MRI. Moderate bilateral hypertrophic facet arthropathy and ligamentum flavum hyper trophy is present with irregularity of the articular surfaces of both facet joints, small degenerativ e cysts and a small left facet effusion. There is mild to moderate bilateral foraminal stenosis and mild to moderate spinal stenosis. AP diameter of the thecal sac is 7.7 mm. L5-S1: There is a minor disc bulge and mild to moderate bilateral facet arthropathy with small degen erative erosions and ligamentum flavum hypertrophy. There is mild bilateral foraminal stenosis. IMPRESSION: 1. Mild lumbar degenerative spondylosis and moderate L4-5 and L5-S1 hypertrophic facet arthropathy. There is irregularity of the articular surfaces of the facets with small erosions that raises the pos sibility of an inflammatory arthritis. If significant symptoms persist, laboratory correlation can b e done or rheumatology consultation may be helpful. 2. Mild to moderate central canal stenosis and bilateral foraminal stenosis L4-5. 3. Stable small right foraminal disc protrusion L4-5.
== END 2018-01-09 14:59 | disposition home or self-care (01) ==
LOC: RAD 14:58
PROVIDERS: ATTEND Family Medicine
DX: M54.5 Low back pain (principal); M54.16 Radiculopathy, lumbar region; M79.672 Pain in left foot; M79.671 Pain in right foot; R07.89 Other chest pain

== ENCOUNTER 2018-01-28 08:13 | Outpatient (CLI) ==
[2015-05-31 08:06] VITALS: BMI 28.3
== END 2018-01-28 08:14 | disposition home or self-care (01) ==
LOC: LAB 08:13
PROVIDERS: ATTEND Family Medicine
DX: D50.9 Iron deficiency anemia, unspecified (principal); E78.5 Hyperlipidemia, unspecified; K76.0 Fatty (change of) liver, not elsewhere classified; M12.9 Arthropathy, unspecified; Z79.899 Other long term (current) drug therapy
CPT/HCPCS: 36415; 80053; 80061; 81001; 82977; 85025; 86430; 87086; 93005; 93010

== ENCOUNTER 2018-06-21 15:21 | Outpatient (CLI) ==
[2015-05-31 08:06] VITALS: BMI 28.3
== END 2018-06-21 15:22 | disposition home or self-care (01) ==
LOC: FCC-LAB 15:21
PROVIDERS: ATTEND Family Medicine
DX: R79.89 Other specified abnormal findings of blood chemistry (principal)
CPT/HCPCS: 36415; 82607; 86200

== ENCOUNTER 2018-06-24 09:34 | Outpatient (CLI) ==
[2015-05-31 08:06] VITALS: BMI 28.3
== END 2018-06-24 09:35 | disposition home or self-care (01) ==
LOC: LAB 09:34
PROVIDERS: ATTEND Family Medicine
DX: R76.8 Other specified abnormal immunological findings in serum (principal); R79.89 Other specified abnormal findings of blood chemistry; E53.8 Deficiency of other specified B group vitamins
CPT/HCPCS: 36415; 83921

== ENCOUNTER 2019-01-02 09:31 | Outpatient (CLI) ==
[2015-05-31 08:06] VITALS: BMI 28.3
--- NOTE | 2019-01-02 12:36 | DI ---
Exam: Four views of the right knee. Comparison: 01/28/2015. Reason for exam: Pain in right knee FINDINGS: No acute fracture or dislocation. There is medial joint space narrowing with mild osteoph yte formation. No large effusion is seen. Impression: No acute fracture or dislocation in the right knee with mild to moderate degenerative disease
--- NOTE | 2019-01-02 12:37 | DI ---
Exam: Four views of the left knee. Comparison: 12/02/2015. Reason for exam: Pain in left knee FINDINGS: No acute fracture. There is medial joint space narrowing with near bone on bone articulat ion. No large effusion is seen. Impression: No acute fracture or dislocation in the left knee with moderate degenerative disease
--- NOTE | 2019-01-04 11:48 | MAMMO ---
EXAM: Bilateral digital screening mammogram (2-D and 3-D) History: Screening Comparison: Bilateral mammogram 11/14/2017 Findings: MLO and CC views of bilateral breasts demonstrate scattered fibroglandular breast parenchy ma. Postsurgical changes are again seen within the right breast. There are no dominant masses, no s uspicious microcalcifications and no architectural distortions. CAD was reviewed by the radiologist. Tomosynthesis was performed. Impression: Benign stable mammogram. Recommend followup routine screening mammography in 1 year. BIRADS 2, benign
== END 2019-01-02 09:32 | disposition home or self-care (01) ==
LOC: RHC-LAB 09:31 → FCC-LAB 09:32
PROVIDERS: ATTEND Family Medicine
DX: Z12.31 Encounter for screening mammogram for malignant neoplasm of breast (principal); M25.561 Pain in right knee; M25.562 Pain in left knee; M25.571 Pain in right ankle and joints of right foot; M25.572 Pain in left ankle and joints of left foot; M54.5 Low back pain; G89.29 Other chronic pain; R76.8 Other specified abnormal immunological findings in serum
CPT/HCPCS: 36415; 80053; 85025; 85651; 86038; 86140; 86200; 86430

== ENCOUNTER 2019-06-21 07:39 | Outpatient (CLI) ==
[2015-05-31 08:06] VITALS: BMI 28.3
== END 2019-06-21 07:40 | disposition home or self-care (01) ==
LOC: LAB 07:39
PROVIDERS: ATTEND Internal Medicine Rheumatology
DX: M05.79 Rheumatoid arthritis with rheumatoid factor of multiple sites without organ or systems involvement (principal); Z79.899 Other long term (current) drug therapy
CPT/HCPCS: 36415; 80053; 85025

== ENCOUNTER 2019-07-11 13:09 | Outpatient (CLI) ==
[2015-05-31 08:06] VITALS: BMI 28.3
== END 2019-07-11 13:10 | disposition home or self-care (01) ==
LOC: CAR 13:09
PROVIDERS: ATTEND Internal Medicine Rheumatology
DX: M05.79 Rheumatoid arthritis with rheumatoid factor of multiple sites without organ or systems involvement (principal); Z91.89 Other specified personal risk factors, not elsewhere classified
CPT/HCPCS: 93005; 93010

== ENCOUNTER 2020-01-25 13:56 | Observation (INO) ==
[2020-01-25 14:00] VITALS: BMI 26.6
--- NOTE | 2020-01-25 14:06 | ED.PDOC ---
General ED Provider: Dr. RADHA ESCAMILLA Chief Complaint: Toe Pain/Injury Stated Complaint: Patient states that she wore new shoes recently then notice a blister on the right 5th toe yesterday which raptured and stated draining clear fluid but the developed in to a painful red area with a red streak going in to the mid foot. Has tenderness to palpation on the mid dorsum of foot. Time Seen by Physician: 14:20 Mode of Arrival: Walk-In Information Source: Patient Primary Care Provider: MELISSA WELLS MD Nursing and Triage Documentation Reviewed and Agree: Yes Does patient meet sepsis criteria?: No System Inflammatory Response Syndrome: Not Applicable Sepsis Protocol: For patient's 13 years and over: Temp is 96.8 and below OR 101 and greater Pulse >90 BPM Resp >20/minute Acutely Altered Mental Status Are patient's symptoms suggestive of a new infection, such as: -Pneumonia -Skin, Soft Tissue -Endocarditis -UTI -Bone, Joint Infection -Implantable Device -Acute Abdominal Infection -Wound Infection -Meningitis -Blood Stream Catheter Infection -Unknown Musculoskeletal Complaint Exam Ankle/Foot Complaint/Exam Location of Injury: Reports Right, Foot and Toe #5 Mechanism of Injury: Reports No known trauma Symptoms Are: Reports Still present Initial Severity: Mild Current Severity: Moderate Location: Reports Discrete (5th toe) and Radiating (dorsum of foot) Character: Reports Aching and Throbbing Alleviating: Reports None Aggravating: Reports Movement Able to Bear Weight: Yes Associated Signs and Symptoms: Reports Swelling and Redness Gout Risk Factors: Reports None Related Surgical History: Reports None Lower Extremity Findings: Present Swelling, Blisters (ruptured ) and Tenderness Achilles Tendon Abnormality: No Tenderness: Present Digits Limited Range of Motion: Absent Inversion, Eversion, Dorsiflexion and Plantarflexion Ankle/Foot Picture: 1. Ruptured blister with redness 2. redness radiating 3. Tenderness to palpation Differential Diagnosis: Infection and Tendonitis Review of Systems Review Of Systems Constitutional: Reports No symptoms Eyes: Reports No symptoms Ears, Nose, Mouth, Throat: Reports No symptoms Respiratory: Reports No symptoms Cardiac: Reports No symptoms GI: Reports No symptoms : Reports No symptoms Musculoskeletal: Reports No symptoms Skin: Reports Bruising and Rash Neurological: Reports Anxiety Endocrine: Reports No symptoms Hematologic/Lymphatic: Reports No symptoms All Other Systems: Reviewed and Negative [facility] Medical History (Updated 01/25/20 @ 17:20 by CALEB WALTON) Anesthesia complication BRCA gene mutation negative Breast cancer, right Depression (Acute) Gastroesophageal reflux disease Hx of migraine headaches (Acute) Hyperlipidemia (Chronic) Irritable bowel syndrome Nonalcoholic fatty liver disease Osteoarthritis (Acute) Quadriceps tendinitis (Resolved) Rheumatoid arthritis (Acute) Social History Smoking and tobacco status: Never smoker Second hand smoke exposure: No Smoking risk assessment performed: No Alcohol intake: never Counseling given: No Counseling provided: none Substance use type: does not use Counseling given: No Counseling provided: none Laurita/latter day: NONE Special laurita needs: No Adopted: No Caregiver/support person: No Foster care: No Household members: significant other Housing: house Marital status: S SINGLE Lives independently: Yes Daycare: no daycare Number of children: 1 Number of grandchildren: 1 Highest education level completed: GED or equivalent Financial difficulty paying for basics: somewhat hard service: No senior living: No Current occupational status: employed Current occupational exposures/hazards: No Pets and animals: Yes (cats) Leisure activites: other History of recent travel: No Sexually active: Yes Do you think of yourself as: straight/heterosexual Current gender identity: female Seatbelt use: always Helmet use: No Drives intoxicated or rides with intoxicated road oiling truck driver: No Water heater temperature set < 120 degrees: Yes Working smoke detector in home: Yes Fire extinguisher in home: No Carbon monoxide detector in home: No Firearms in home: Yes Firearms unloaded and locked: Yes Female Reproductive History Menstrual Hx Hysterectomy: No Hx Tubal Ligation: No Physical Exam Physical Exam Appearance: Reports Ill-appearing Ill-appearing: Mild Pain Distress: Moderate Neck: Supple Respiratory: Reports Airway patent, Breath sounds clear and Breath sounds equal Cardiovascular: Reports RRR and Pulses normal GI/: Reports Soft and Nontender Musculoskeletal: Reports Normal strength Skin: Reports Warm and Dry Neurological: Reports Motor intact, Alert and Oriented Psychiatric: Reports Anxious Critical Care Note Critical Care Note Total Time (mins): 30 Course Course Hematology/Chemistry: 01/25/20 14:30 01/25/20 14:25 Orders, Labs, Meds: Lab Review 01/25/20 01/25/20 01/25/20 14:25 14:25 14:30 WBC 6.54 RBC 4.13 L Hgb 12.2 Hct 38.2 MCV 92.5 MCH 29.5 MCHC 31.9 RDW Coeff of Lisa 14.3 Plt Count 259 Immature Gran % (Auto) 0.2 Neut % (Auto) 57.4 Lymph % (Auto) 28.7 [place] % (Auto) 8.3 Eos % (Auto) 4.9 Baso % (Auto) 0.5 Immature Gran # (Auto) 0.0 Neut # (Auto) 3.8 Lymph # (Auto) 1.9 [place] # (Auto) 0.5 Eos # (Auto) 0.3 Baso # (Auto) 0.0 Sodium 141.5 Potassium 4.23 Chloride 105.5 Carbon Dioxide 30.7 H Anion Gap 9.53 BUN 24.2 H Creatinine 0.91 Estimated GFR (MDRD) 64.00 BUN/Creatinine Ratio 26.59 Glucose 95.1 Lactic Acid 0.55 L Calcium 9.13 Total Bilirubin 0.45 AST 46.1 H ALT 65.3 H Alkaline Phosphatase 66.9 Total Protein 7.59 Albumin 4.29 Globulin 3.30 Albumin/Globulin Ratio 1.30 Procalcitonin 01/25/20 14:30 WBC RBC Hgb Hct MCV MCH MCHC RDW Coeff of Lisa Plt Count Immature Gran % (Auto) Neut % (Auto) Lymph % (Auto) [place] % (Auto) Eos % (Auto) Baso % (Auto) Immature Gran # (Auto) Neut # (Auto) Lymph # (Auto) [place] # (Auto) Eos # (Auto) Baso # (Auto) Sodium Potassium Chloride Carbon Dioxide Anion Gap BUN Creatinine Estimated GFR (MDRD) BUN/Creatinine Ratio Glucose Lactic Acid Calcium Total Bilirubin AST ALT Alkaline Phosphatase Total Protein Albumin Globulin Albumin/Globulin Ratio Procalcitonin < 0.05 Orders Category Date Time Status ED APPLY O2 .ONCE EMERGENCY 01/25/20 14:12 Active ED PASTING INSPECTOR APPLIED .ONCE EMERGENCY 01/25/20 14:12 Active ED VITAL SIGNS Q4HR EMERGENCY 01/25/20 14:12 Completed BLOOD CULTURE (ED ONLY) Stat LAB 01/25/20 14:25 Received CBC W/ AUTO DIFF Stat LAB 01/25/20 14:30 Completed COMPREHENSIVE METABOLIC PANEL Stat LAB 01/25/20 14:25 Completed LACTIC ACID Stat LAB 01/25/20 14:25 Completed PROCALCITONIN Stat LAB 01/25/20 14:30 Completed Cefazolin Sodium [Ancef] MEDS 01/25/20 14:26 Discontinued 1 gm .ROUTE .STK-MED ONE Cefazolin Sodium [Ancef] 1 gm MEDS 01/25/20 14:12 Discontinued 0.9 % Sodium Chloride [Sodium Chloride] 50 ml IV ONCE Medications Generic Name Dose Route Start Last Admin Trade Name Freq PRN Reason Stop Dose Admin Acetaminophen 650 mg 01/25/20 16:11 Tylenol PO Q4H PRN fever or pain Diclofenac Sodium 75 mg 01/25/20 21:00 01/25/20 20:01 Diclofenac Sodium PO 75 mg BID PANCHO Administration Enoxaparin Sodium 40 mg 01/26/20 09:00 Lovenox SUBCUT DAILY PANCHO Ferrous Sulfate 324 mg 01/25/20 21:00 01/25/20 20:02 Ferrous Sulfate PO 324 mg BID PANCHO Administration Fluoxetine HCl 40 mg 01/26/20 09:00 Prozac PO DAILY PANCHO Gabapentin 600 mg 01/25/20 18:00 01/25/20 20:02 Neurontin PO 600 mg TID PANCHO Administration Hydroxychloroquine Sulfate 400 mg 01/25/20 21:00 Plaquenil PO BEDTIME PANCHO Sodium Chloride 1,000 mls @ 75 mls/hr 01/25/20 16:30 01/25/20 18:22 Sodium Chloride IV 75 mls/hr .[id number] PANCHO Administration Cefazolin Sodium 1 gm/ Sodium 50 mls @ 75 mls/hr 01/25/20 21:00 01/25/20 20:10 Chloride IV 01/28/20 20:59 75 mls/hr Q8HR PANCHO Administration Non-Formulary Medication 250 mg 01/25/20 18:00 Terbinafine Hcl PO DAILY PANCHO Ondansetron HCl 4 mg 01/25/20 16:11 Zofran 4 Mg/2 Ml IVP Q6H PRN nausea Quetiapine Fumarate 150 mg 01/25/20 21:00 01/25/20 20:01 Seroquel PO 150 mg BEDTIME PANCHO Administration Discontinued Medications Generic Name Dose Route Start Last Admin Trade Name Freq PRN Reason Stop Dose Admin Cefazolin Sodium 1 gm/ Sodium 50 mls @ 75 mls/hr 01/25/20 14:12 01/25/20 14:40 Chloride IV 01/25/20 14:51 75 mls/hr ONCE STA Administration Vital Signs: Temp Pulse Resp BP Pulse Ox 01/25/20 13:57 97.0 F L 94 H 18 143/74 H 95 Discharge Plan Discharge Patient Disposition: ADMITTED INPATIENT Discharge Problem: Cellulitis of fifth toe of right foot ED Provider: RADHA ESCAMILLA Condition: Fair Discharge Date/Time: 01/25/20 16:15
[2020-01-25] MEDS ORDERED: ANCEF 1 GM in SODIUM CHLORIDE 50 ML IV STA (14:12)
[2020-01-25] MEDS ORDERED: ANCEF ONE ×2 (14:26→19:54)
[2020-01-25 14:31] LABS: HEMATOCRIT 38.2 % (37.0-47.0)
[2020-01-25] MEDS ORDERED: ZOFRAN 4 MG/2 ML IVP PRN (16:11)
[2020-01-25] MEDS ORDERED: TYLENOL PO PRN (16:11)
--- NOTE | 2020-01-25 16:27 | PCM ---
Chief Complaint Chief Complaint: "worsening toe infection" History of Present Illness History of Present Illness: Julianna Witt is a 54 yo female patient of Dr. Charles Paul who presents to [facility] ER 01/25/2020 13:56 w/ complaints of new onset R 5th toe injury/ill-fitting shoe causing a blister in last 36 hrs that patient drained w/ needle herself resulting in progressively worsening redness to bright redness w/ red streak traveling to mid dorsal foot. There is small amount of clear drainage oozing and R lateral foot pad and mid dorsal tenderness to wt. bearing or deep pressure palpation; unable to wear shoe d/t pain. Denies pus or infected drainage, swelling, foot pain w/ weight bearing, limp, or other significant bone or joint issues. Home treatment has consisted needle rupture of blister w/ current significant cellulitis symptoms. Patient denies any recent illness or known diabetes. PMH is positive for HLD, Depression, Hx Migraines, Rhematoid & Osteoarthritis, and Onymychosis. Admission labs reveals essentially normal CBC; CMP abnormals are slightly elevated BUN 24.2/Creatinine 0.91N, and elevated ALT/AST 65.3/46.1. ProCalcitonin and Lactic Acid are both non-significant. Patient was admitted as Observation for R 5th toe cellulitis w/ Cefazolin 1GM given in ER and continued IV ATB and wound care. On admission to Inpatient Unit, a culture of the ruptured blister was obtained per nursing staff. Full Code status verified per patient. Review of Systems Constitutional: Denies fever, chills, weakness, sweats, fatigue and loss of appetite Eyes: Denies blurred vision, double-vision, discharge, pain and redness Ears: Denies pain, bleeding, drainage and hearing loss Nose: Denies bleeding, congestion and discharge Throat: Denies pain, swelling and voice change Mouth: Denies bleeding, pain and swelling Respiratory: Denies cough, shortness of air, wheeze, hemoptysis and pain with breathing Cardiovascular: Denies chest pain, left arm pain, diaphoresis, PND, orthopnea, edema, palpitations and syncope Gastrointestinal: Denies abdominal pain, nausea, vomiting, diarrhea, melena, hematemesis, hematochezia, dysphagia and constipation Genitourinary: Denies dysuria, hematuria, frequency, incontinence and flank pain Neurological: Reports headache (hx migraine headaches; none recently.), numbness (intermittent N/T in bilateral feet & toes; none at present.), problems with walking (Hurts to walk on R foot w/ current cellulitis. ) and tremor (has occasional tremors bilateral hands.); Denies dizziness, seizure, weakness, speech difficulty and fainting Musculoskeletal: Reports pain (Multiple joints w/ Osteoarthritis & Positive RA tests. ) and swelling in joints (mild swelling R 5th toe since blister. ); Denies other Skin: Denies rash, pruritus, lacerations, wounds and bruising Hematology: Denies easy bruising, easy bleeding and swollen glands Endocrine: Reports weight changes, cold intolerance and heat intolerance Psychiatric: Reports depression (controlled w/ meds) and other; Denies anxiety, sleeplessness, hopelessness, suicidal and hallucinations Habits: Denies tobacco use, substance use and alcohol use Allergies Allergies Allergy/AdvReac Type Severity Reaction Status Date / Time blue dye AdvReac Verified 01/25/20 14:04 sulfacetamide sodium AdvReac Verified 01/25/20 14:04 [From Sulfamide] sulfamethoxazole AdvReac Verified 01/25/20 14:04 [From Bactrim] trimethoprim [From Bactrim] AdvReac Verified 01/25/20 14:04 [facility] Medical History (Updated 01/25/20 @ 17:20 by CALEB WALTON) Anesthesia complication BRCA gene mutation negative Breast cancer, right Depression (Acute) Gastroesophageal reflux disease Hx of migraine headaches (Acute) Hyperlipidemia (Chronic) Irritable bowel syndrome Nonalcoholic fatty liver disease Osteoarthritis (Acute) Quadriceps tendinitis (Resolved) Rheumatoid arthritis (Acute) Surgical History History of section Lumpectomy of breast Status post tonsillectomy Social History Smoking and tobacco status: Never smoker Second hand smoke exposure: No Smoking risk assessment performed: No Alcohol intake: never Counseling given: No Counseling provided: none Substance use type: does not use Counseling given: No Counseling provided: none Laurita/hinduism: NONE Special laurita needs: No Adopted: No Caregiver/support person: No Foster care: No Household members: significant other Housing: house Marital status: S SINGLE Lives independently: Yes Daycare: no daycare Number of children: 1 Number of grandchildren: 1 Highest education level completed: GED or equivalent Financial difficulty paying for basics: somewhat hard service: No jail: No Current occupational status: employed Current occupational exposures/hazards: No Pets and animals: Yes (cats) Leisure activites: other History of recent travel: No Sexually active: Yes Do you think of yourself as: straight/heterosexual Current gender identity: female Seatbelt use: always Helmet use: No Drives intoxicated or rides with intoxicated lift driver: No Water heater temperature set < 120 degrees: Yes Working smoke detector in home: Yes Fire extinguisher in home: No Carbon monoxide detector in home: No Firearms in home: Yes Firearms unloaded and locked: Yes Medications Medications: Home Medications diclofenac sodium 75 mg PO BID 07/23/19 [History Confirmed 01/25/20] hydroxychloroquine [Plaquenil] 400 mg PO BEDTIME 07/23/19 [History Confirmed 01/25/20] gabapentin 600 mg tablet 600 mg PO TID 90 Days #270 tab-cap 11/29/19 [Rx Confirmed 01/25/20] terbinafine HCl 250 mg tablet 250 mg PO QDAY 84 Days #84 tab 11/29/19 [Rx Confirmed 01/25/20] quetiapine 150 mg PO BEDTIME 12/08/19 [History Confirmed 01/25/20] adalimumab 40 mg/0.4 mL subcutaneous syringe kit 40 mg SUBCUT Q2W 01/03/20 [History Confirmed 01/25/20] ferrous sulfate 325 mg (65 mg iron) tablet 325 mg PO BID 90 Days #180 tab-cap 01/09/20 [Rx Confirmed 01/25/20] ergocalciferol (vitamin D2) 50,000 unit capsule 50,000 unit PO QWEEK #12 cap 01/10/20 [Rx Confirmed 01/25/20] fluoxetine 20 mg capsule 40 mg PO DAILY 90 Days #90 caplet 01/23/20 [Rx Confirmed 01/25/20] Hospital meds: Home meds to be cont'd. Ancef 1 GM IV 1 GM Q 8 hrs Acetaminophen (Tylenol) 650 mg PO Q4H PRN PRN Reason: fever or pain Enoxaparin Sodium (Lovenox) 30 mg SUBCUT DAILY PANCHO Sodium Chloride (Sodium Chloride) 1,000 mls @ 75 mls/hr IV .[id number] [facility] Cefazolin Sodium 1 gm/ Sodium (Chloride) 50 mls @ 75 mls/hr IV Q12HR [facility] Stop: 01/28/20 20:59 Ondansetron HCl (Zofran 4 Mg/2 Ml) 4 mg IVP Q6H PRN PRN Reason: nausea Body Composition Height: 5 ft 5 in Weight: 160 lb Body Mass Index (BMI): 26.6 Vital Signs Temperature: 97.0 F Pulse Rate: 94 Respiratory Rate: 18 Blood Pressure: 143/74 O2 Sat by Pulse Oximetry: 95 Physical Examination Appearance: Reports Well-appearing, No pain distress and Obese Ill-appearing: None Pain Distress: None Eyes: Reports ANU, EOMI and Conjunctiva clear ENT: Reports Ears normal, Nose normal and Oropharynx normal Neck: Supple Respiratory: Reports Airway patent, Breath sounds clear, Breath sounds equal and Respirations nonlabored; Denies Crackles, Rhonchi, Wheezes and Retractions Cardiovascular: Reports RRR, Pulses normal, No rub and No murmur GI/: Reports Soft, Nontender, No masses, Bowel sounds normal and No Organomegaly Musculoskeletal: Reports Normal strength, ROM intact, No calf tenderness and Edema (R 5th toe w/ moderate edema.) Skin: Reports Warm, Dry and Normal color (except bright red inflammation R 5th toe w/ streak going to mid-dorsal foot. 70"dorsal R5th toe is denuded blister w/ some granulation and scant clear drainage noted. ) Neurological: Reports Sensation intact, Motor intact, Reflexes intact, Cranial nerves intact, Alert and Oriented Psychiatric: Reports Affect appropriate and Mood appropriate; Denies Anxious and Depressed Lab/Tests/Diagnostic Imaging Lab/Tests/Diagnostic Imaging: Lab Review 01/25/20 01/25/20 01/25/20 14:25 14:25 14:30 WBC 6.54 RBC 4.13 L Hgb 12.2 Hct 38.2 MCV 92.5 MCH 29.5 MCHC 31.9 RDW Coeff of Lisa 14.3 Plt Count 259 Immature Gran % (Auto) 0.2 Neut % (Auto) 57.4 Lymph % (Auto) 28.7 [place] % (Auto) 8.3 Eos % (Auto) 4.9 Baso % (Auto) 0.5 Immature Gran # (Auto) 0.0 Neut # (Auto) 3.8 Lymph # (Auto) 1.9 [place] # (Auto) 0.5 Eos # (Auto) 0.3 Baso # (Auto) 0.0 Sodium 141.5 Potassium 4.23 Chloride 105.5 Carbon Dioxide 30.7 H Anion Gap 9.53 BUN 24.2 H Creatinine 0.91 Estimated GFR (MDRD) 64.00 BUN/Creatinine Ratio 26.59 Glucose 95.1 Lactic Acid 0.55 L Calcium 9.13 Total Bilirubin 0.45 AST 46.1 H ALT 65.3 H Alkaline Phosphatase 66.9 Total Protein 7.59 Albumin 4.29 Globulin 3.30 Albumin/Globulin Ratio 1.30 Procalcitonin 01/25/20 14:30 WBC RBC Hgb Hct MCV MCH MCHC RDW Coeff of Lisa Plt Count Immature Gran % (Auto) Neut % (Auto) Lymph % (Auto) [place] % (Auto) Eos % (Auto) Baso % (Auto) Immature Gran # (Auto) Neut # (Auto) Lymph # (Auto) [place] # (Auto) Eos # (Auto) Baso # (Auto) Sodium Potassium Chloride Carbon Dioxide Anion Gap BUN Creatinine Estimated GFR (MDRD) BUN/Creatinine Ratio Glucose Lactic Acid Calcium Total Bilirubin AST ALT Alkaline Phosphatase Total Protein Albumin Globulin Albumin/Globulin Ratio Procalcitonin < 0.05 Orders Category Date Time Status ADMIT OBSERVATION [PLACE PATIENT OBSERVATION] .TO ADMISSION 01/25/20 16:09 Active MEDSURG (NON-MONITORED BED) ED APPLY O2 .ONCE EMERGENCY 01/25/20 14:12 Active ED LABOR REPRESENTATIVE APPLIED .ONCE EMERGENCY 01/25/20 14:12 Active ED VITAL SIGNS Q1HR EMERGENCY 01/25/20 14:12 Active BLOOD CULTURE (ED ONLY) Stat LAB 01/25/20 14:25 Received CBC W/ AUTO DIFF Stat LAB 01/25/20 14:30 Completed COMPREHENSIVE METABOLIC PANEL Stat LAB 01/25/20 14:25 Completed LACTIC ACID Stat LAB 01/25/20 14:25 Completed PROCALCITONIN Stat LAB 01/25/20 14:30 Completed Cefazolin Sodium [Ancef] MEDS 01/25/20 14:26 Discontinued 1 gm .ROUTE .STK-MED ONE Cefazolin Sodium [Ancef] 1 gm MEDS 01/25/20 14:12 Discontinued 0.9 % Sodium Chloride [Sodium Chloride] 50 ml IV ONCE Medications Discontinued Medications Generic Name Dose Route Start Last Admin Trade Name Freq PRN Reason Stop Dose Admin Cefazolin Sodium 1 gm/ Sodium 50 mls @ 75 mls/hr 01/25/20 14:12 01/25/20 14:40 Chloride IV 01/25/20 14:51 75 mls/hr ONCE STA Administration Assessment (1) Cellulitis of fifth toe of right foot: Status: Acute Code(s): L03.031 - Cellulitis of right toe SNOMED Code(s): 91007863 (2) Onychomycosis: Status: Acute Code(s): B35.1 - Tinea unguium SNOMED Code(s): 961430964 (3) Hyperlipidemia: Status: Chronic SNOMED Code(s): 40273372 (4) Osteoarthritis: Status: Acute Code(s): M19.90 - Unspecified osteoarthritis, unspecified site SNOMED Code(s): 839868858 Qualifiers: Osteoarthritis location: multiple joints Osteoarthritis type: unspecified Qualified Code(s): M15.9 - Polyosteoarthritis, unspecified (5) Rheumatoid arthritis: Status: Acute Code(s): M06.9 - Rheumatoid arthritis, unspecified SNOMED Code(s): 11846048 Qualifiers: Rheumatoid arthritis location: multiple sites Rheumatoid factor presence: with rheumatoid factor Qualified Code(s): M05.79 - Rheumatoid arthritis with rheumatoid factor of multiple sites without organ or systems involvement (6) Depression: Status: Acute Code(s): F32.9 - Major depressive disorder, single episode, unspecified SNOMED Code(s): 23724877 Qualifiers: Depression Type: unspecified Qualified Code(s): F32.9 - Major depressive disorder, single episode, unspecified Plan Plan: Cellulitis R 5th Toe s/p self drainage of pressure caused blister--New complication w/ red streak noted. Ancef 1GM IV Q 8 hrs.; Wound care Q 8 hrs cleanse wound w/ sterile saline and light application bactroban w/ telfa and light gauze wrap dressing---Do wound C&S prior to dressing on admission to floor. Monitor and chart wound status w/ dressing changes & prn. VS Q 4 hrs & prn w/ circulation, sensation, and pain status monitoring. Plan is IV ATB therapy and if improving d/c in AM w/ PO Keflex. Onychomycosis--improving per patient; continue home meds Hyperlipidemia--improving per patient; con't home meds Osteoarthritis & RA--chronic pain issues w/ fair control at present. Monitor and con't home meds. Depression--Controlled w/ meds; con't home meds. DVT/VTE Prophylaxis--Lovenox; HAILEY on LLE but not on RLE due to 5th toe blister/cellulitis. NO SCD's available.
[2020-01-25] MEDS: NEURONTIN PO SCH ×2 (18:21→20:02)
[2020-01-25] MEDS: SODIUM CHLORIDE 1,000 ML IV SCH (18:22)
[2020-01-25] MEDS: DICLOFENAC SODIUM PO SCH (20:01)
[2020-01-25] MEDS: FERROUS SULFATE PO SCH (20:02)
[2020-01-25] MEDS: ANCEF 1 GM in SODIUM CHLORIDE 50 ML IV SCH (20:10)
[2020-01-25] MEDS ORDERED: PLAQUENIL PO SCH (21:00)
[2020-01-25] MEDS ORDERED: SEROQUEL PO SCH (21:00)
[2020-01-26 04:21] LABS: HEMATOCRIT 36.2 % (37.0-47.0)
[2020-01-26] MEDS ORDERED: ANCEF ONE (05:56)
[2020-01-26] MEDS: ANCEF 1 GM in SODIUM CHLORIDE 50 ML IV SCH (06:02)
[2020-01-26] MEDS: SODIUM CHLORIDE 1,000 ML IV SCH ×2 (07:22→08:28)
[2020-01-26] MEDS: TERBINAFINE HCL 250 MG PO SCH ×2 (08:52→09:01)
[2020-01-26] MEDS: NEURONTIN PO SCH ×2 (08:54→15:17)
[2020-01-26] MEDS: DICLOFENAC SODIUM PO SCH (08:54)
[2020-01-26] MEDS: FERROUS SULFATE PO SCH (08:55)
[2020-01-26] MEDS ORDERED: PROZAC PO SCH (09:00)
[2020-01-26] MEDS ORDERED: LOVENOX SUBCUT SCH (09:00)
--- NOTE | 2020-01-26 09:17 | PCM.DC ---
Final Diagnosis: R 5th Toe Cellulitis (1) Cellulitis of fifth toe of right foot: Status: Acute Code(s): L03.031 - Cellulitis of right toe SNOMED Code(s): 82045272 (2) Onychomycosis: Status: Acute Code(s): B35.1 - Tinea unguium SNOMED Code(s): 157720126 (3) Hyperlipidemia: Status: Chronic SNOMED Code(s): 70371796 Qualifiers: Hyperlipidemia type: unspecified Qualified Code(s): E78.5 - Hyperlipidemia, unspecified (4) Osteoarthritis: Status: Acute Code(s): M19.90 - Unspecified osteoarthritis, unspecified site SNOMED Code(s): 524899602 Qualifiers: Osteoarthritis location: multiple joints Osteoarthritis type: unspecified Qualified Code(s): M15.9 - Polyosteoarthritis, unspecified (5) Rheumatoid arthritis: Status: Acute Code(s): M06.9 - Rheumatoid arthritis, unspecified SNOMED Code(s): 77670436 Qualifiers: Rheumatoid arthritis location: multiple sites Rheumatoid factor presence: with rheumatoid factor Qualified Code(s): M05.79 - Rheumatoid arthritis with rheumatoid factor of multiple sites without organ or systems involvement (6) Depression: Status: Acute Code(s): F32.9 - Major depressive disorder, single episode, unspecified SNOMED Code(s): 07962074 Qualifiers: Depression Type: unspecified Qualified Code(s): F32.9 - Major depressive disorder, single episode, unspecified Reason for Hospitalization: R 5th toe cellulitis w/ red streak to mid dorsal foot w/ pain on ambulation needing IV antibiotic therapy & wound care Prognosis at Discharge: Good w/ antibiotics cont'd and patient alert and medically compliant. Condition at Discharge: Improving but needing daily care and antibiotics; hope ful f-u w/ PCP in 2-3 days depending on community Covid-19 status. Medications at Discharge: Ambulatory Orders Medication Instructions Recorded diclofenac sodium 75 mg PO BID 07/23/19 hydroxychloroquine [Plaquenil] 400 mg PO BEDTIME 07/23/19 gabapentin 600 mg tablet 600 mg PO TID 90 Days #270 tab-cap 11/29/19 terbinafine HCl 250 mg tablet 250 mg PO QDAY 84 Days #84 tab 01/24/20 quetiapine 150 mg PO BEDTIME 12/08/19 adalimumab 40 mg/0.4 mL 40 mg SUBCUT Q2W 01/03/20 subcutaneous syringe kit ferrous sulfate 325 mg (65 mg 325 mg PO BID 90 Days #180 tab-cap 01/09/20 iron) tablet ergocalciferol (vitamin D2) 50,000 50,000 unit PO QWEEK #12 cap 01/10/20 unit capsule fluoxetine 20 mg capsule 40 mg PO DAILY 90 Days #90 caplet 01/23/20 Lab/Diagnostics: Laboratory Results WBC 5.60 K/ul (4.6-10.2) 01/26/20 04:15 RBC 3.91 10^6/ul (4.20-5.40) L 01/26/20 04:15 Hgb 11.8 g/dl (12.0-16.0) L 01/26/20 04:15 Hct 36.2 % (37.0-47.0) L 01/26/20 04:15 MCV 92.6 fl (81.0-99.0) 01/26/20 04:15 MCH 30.2 pg (27.0-31.0) 01/26/20 04:15 MCHC 32.6 (31.8-35.4) 01/26/20 04:15 RDW Coeff of Lisa 14.6 % (11.6-14.8) 01/26/20 04:15 Plt Count 236 10^3/uL (140-440) 01/26/20 04:15 Immature Gran % (Auto) 0.2 % (0.0-5.0) 01/26/20 04:15 Neut % (Auto) 48.1 % (42.2-75.2) 01/26/20 04:15 Lymph % (Auto) 38.6 (10.0-50.0) 01/26/20 04:15 [place] % (Auto) 7.3 (0-10) 01/26/20 04:15 Eos % (Auto) 5.4 % (0.0-7.0) 01/26/20 04:15 Baso % (Auto) 0.4 % (0.0-3.0) 01/26/20 04:15 Immature Gran # (Auto) 0.0 (0.0-1.0) 01/26/20 04:15 Neut # (Auto) 2.7 K/ul (2.0-6.9) 01/26/20 04:15 Lymph # (Auto) 2.2 K/uL (0.60-3.4) 01/26/20 04:15 [place] # (Auto) 0.4 K/uL (0.4-2.0) 01/26/20 04:15 Eos # (Auto) 0.3 K/ul (0.0-0.7) 01/26/20 04:15 Baso # (Auto) 0.0 K/uL (0-0.2) 01/26/20 04:15 Sodium 142.3 mmol/L (134.5-145) 01/26/20 04:15 Potassium 4.32 mmol/L (3.5-5.1) 01/26/20 04:15 Chloride 107.8 mmol/L (98-107) H 01/26/20 04:15 Carbon Dioxide 30.4 mmol/L (22-30.0) H 01/26/20 04:15 Anion Gap 8.42 01/26/20 04:15 BUN 19.1 mg/dL (7-17) H 01/26/20 04:15 Creatinine 0.73 mg/dL (0.60-1.30) 01/26/20 04:15 Estimated GFR (MDRD) 82.00 mL/min 01/26/20 04:15 BUN/Creatinine Ratio 26.16 01/26/20 04:15 Glucose 109.5 mg/dL (74-106) H 01/26/20 04:15 Hemoglobin A1c 5.99 (4.0-6.0) 01/26/20 04:15 Lactic Acid 0.55 mmol/L (0.7-2.1) L 01/25/20 14:25 Calcium 8.50 mg/dL (8.4-10.2) 01/26/20 04:15 Total Bilirubin 0.45 mg/dL (0.2-1.3) 01/25/20 14:25 AST 46.1 U/L (14-36) H 01/25/20 14:25 ALT 65.3 U/L (0-35) H 01/25/20 14:25 Alkaline Phosphatase 66.9 U/L (38-126) 01/25/20 14:25 Total Protein 7.59 g/dL (6.3-8.2) 01/25/20 14:25 Albumin 4.29 g/dL (3.5-5.0) 01/25/20 14:25 Globulin 3.30 01/25/20 14:25 Albumin/Globulin Ratio 1.30 01/25/20 14:25 Procalcitonin < 0.05 ng/mL (0.09) 01/25/20 14:30 Patient: ALISA KIRKPATRICKAcct:[id number] Record: [id number] : 1965Loc: [facility]/Bed: 1 Age/Sex: 54 / FADM Status: ADM INODate of Service: 01/26/20 Ordering Physician: CALEB WALTNO Procedure(s): CT FOOT RIGHT W/WO CONTRAST Report Number(s): [id number] Accession Number(s): [id number] cc: CALEB WALTON ; MELISSA WELLS MD EXAM: Seen CT right foot without contrast HISTORY: Suspect osteomyelitis COMPARISON: None TECHNIQUE: CT right foot performed with and without intravenous contrast. Coronal and sagittal reformatted images obtained. FINDINGS: No fracture or dislocation. Mild scattered osteophytic change. No cortical destruction identified to suggest osteomyelitis. Small to moderate plantar calcaneal spur and small posterior calcaneal spur. Scattered subcutaneous edema most prominent about the fifth toe laterally and first toe medially. IMPRESSION: 1. No CT evidence for osteomyelitis. 2. Subcutaneous edema most prominent about the fifth toe laterally and first toe medially, can be correlated for edema and/or cellulitis. No focal drainable collection. 3. Calcaneal spurring 4. Osteoarthritis Dictated By:EDUAR BETANCOURT Signed By:EDUAR BETANCOURT MD Dictated Date/Time: 01/26/20 1446 Transcribed Date/Time: 01/26/20 1446 Signed Date/Time: 01/26/20 1522 Education Provided to Patient and Family: Diet as tolerated---encourage healthy balanced diet with decreasing calorie intake and gradually increasing exercise for 2-4 lb weight loss per week--recommend 20lb weight loss gradually with developing healthy eating habits as discussed. See handout. Keep Right lower extremity elevated as directed when possible. May use crutches w/o right weight bearing if needed. Cleanse Right 5th toe wound 2time a day gently w/ normal saline, then apply Cleanse with normal saline as directed, then apply Bactroban ointment with Q-tip to wound, cover with non-stick dressing(telfa pad), and wrap with toña gauze dressing as directed 2 times a day and as needed. * Keep dressing dry. Do NOT soak foot as this may bring more germs into the area! Elevate right lower leg as directed. Keep pressure of the wound---no tight fitting shoes or apparel. Observe wound daily and call Dr. Wells office for temp >100.3 degrees, worsening symptoms, colored drainage, worsening swelling, and severe pain as directed. See handout. Take antibiotics as prescribed until they are completed. Follow-up w/ Dr. Lopez's office in 3-5 days as per their directions--call for appointment Monday AM as it may take awhile for you to be seen. Please, tell them you were just discharged from the hospital with IV antibiotic therapy and Cellulitis with streaking up your right foot. Follow-ups: F-U w/ Dr. Wells in 3-5 days or sooner problems--call office on Monday for appointment. 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 She decided to treat the toe by draining the blister and 24 hrs later had clear drainage, swelling, and pain not in the toe but mid front sole pad. She complained that weight bearing caused pain, but the R 5th digit was not painful. Upon admission her labs were essentially normal CBC; CMP abnormals are slightly elevated BUN 24.2/Creatinine 0.91N, and elevated ALT/AST 65.3/46.1. ProCalcitonin and Lactic Acid were both non-significant. She was started on Ancef 1Gm IV Q 8 hrs. w/ wound cultures obtained. Patient assessment was negative other than a red swollen 5th toe that had 10cent sized denuded blister draining clear fluid and was NTT and mid distal foot pad tenderness to pressure and red streak to her mid dorsal foot. Day2/Discharge--Patient slept well w/o complaint. Dressing was changed noting scant amount of pale /green thick drainage w/ R foot assessment unchanged except for increased tenderness to touch mid-distal foot pad. Patient has hx of osteoarthitis and RA of joints including feet. W/ Covid-19 environment and not wanting to d/c from hospital if possibilities of osteomyelitis, CT if R foot w/wo contrast was ordered. The CT results showed no current evidence for osteomyelitis; Subcutaneous edema most prominent about the fifth toe laterally and first toe medially, can be correlated for edema and/or cellulitis. No focal drainable collection; Calcaneal spurring; and osteomyelitis. See Cellulitis plan of care. Patient has remained afebrile the entire hospitalization w/ no need for pain medication per nursing staff. Labs on d/c noted normal CBC except for very mild anemia RBC 3.92, and H/H 11.8/36.2; CMP essentially normal w/ BUN decreasing to 19.1 and Fasting glucose 109.5 w/ Hgb A1C checked 5.99. VS were stable w/ d/c BP 140/82 P80 R18 T98F and O2sat 100% on RA. Plan: Cellulitis R 5th Toe s/p self drainage of pressure caused blister --Improving w/ w/ red streak mid-dorsal foot resolved. Preliminary wound culture notes light growth gram positive cocci. Will continue Keflex 500mg PO Q 6hrs X 7 days; Patient to continue BID wound care gently cleansing wound w/ sterile saline and light application bactroban w/ telfa and light gauze wrap dressing--no tape on foot. Patient to monitor wound and report symptoms as directed. Work excuse given to return 01/30/2020 or if needs further time off, call PCP office. Onychomycosis--improving but not resolved; continue home meds Hyperlipidemia--Needs to be addressed per PCP. No lipid panel since 01/2018; May have changed w/ her weight. Encouraged weight loss. Osteoarthritis & RA--Confirmed w/ CT R foot today w/ multiple spurring--Aggravated symptoms w/ R 5th toe injury and ill-fitting new shoes likely; Monitor and report worsening to PCP; May use crutches if needs--discuss w/ PCP; con't home meds. Depression--Controlled w/ meds; con't home meds. Discharge/Disposition Time 50 minutes ---Radiology, Nursing, and patient education.
[2020-01-26] MEDS ORDERED: BACTROBAN TP SCH (09:30)
[2020-01-26] MEDS ORDERED: ANCEF 1 GM/50 ML D5W 1 GM/50 ML BAG IV SCH (13:00)
[2020-01-26 13:57] VITALS: BP 140/82; TEMP 98
--- NOTE | 2020-01-26 15:22 | CT ---
EXAM: Seen CT right foot without contrast HISTORY: Suspect osteomyelitis COMPARISON: None TECHNIQUE: CT right foot performed with and without intravenous contrast. Coronal and sagittal refo rmatted images obtained. FINDINGS: No fracture or dislocation. Mild scattered osteophytic change. No cortical destruction i dentified to suggest osteomyelitis. Small to moderate plantar calcaneal spur and small posterior fabrizio caneal spur. Scattered subcutaneous edema most prominent about the fifth toe laterally and first toe medially. IMPRESSION: 1. No CT evidence for osteomyelitis. 2. Subcutaneous edema most prominent about the fifth toe laterally and first toe medially, can be co rrelated for edema and/or cellulitis. No focal drainable collection. 3. Calcaneal spurring 4. Osteoarthritis
[2020-01-26] MEDS ORDERED: PLAQUENIL PO SCH (21:00)
--- NOTE | 2020-01-28 10:44 | PCM.HOSP ---
Additional Information Additional Information: 01/28/20 @ 10:36 am [employer] Hospitalist [employer] spoke with Mrs Witt at her mobile number listed in chart. She states her foot wound is healing well and she is seeing her PCP for follow up today. Pt is not diabetic and the wound was caused when she opened a friction blister on her toe. [employer] Hospitalist Nolasco treated with IV ancef in house and released with rx for keflex. I advised that her wound culture is now final and shows staph aureus and is sensitive to cipro and I will call this in to her pharmacy this morning. I chose cipro based on sensitivity/KALEIGH and due to the ease of BID dosing; didn't chose clindamycin due to multiple day dosing and side effect of clostridium in some patients. I advised that she should see her PCP first and they can decide together if she needs to change her antibiotic therapy. If she needs to, the rx will be available for her at [facility]. Pt voiced understanding. RX called in by me. Valente Hancock [employer]
== END 2020-01-26 16:47 | disposition home or self-care (01) ==
LOC: ED 13:56 → MEDSURG B 13:56
PROVIDERS: ADMIT Nurse Practitioner Family; ATTEND Nurse Practitioner Family